=== PATIENT | female | born 1970 | race Caucasian/White ===

== ENCOUNTER 2020-09-22 05:35 | Outpatient (RCR) | payer BC ==
[~2020-09-22] VITALS: Ht 165 cm; Wt 111.3 kg
[~2020-09-22 05:35] MED LIST: ATOR40TA70 PO; CANA300T PO; CARV12.53 PO; CHOL-11 PO; CITA-105 PO; CITA40TA11 PO; CLON1TAB3 PO; CYAN10007 PO; GREE150C PO; INSU300I SQ; L.AC1CAP6 PO; LEVO175T5 PO; LEVO200T6 PO; LEVO500T69 PO; LISI-552 PO; LVT.15T PO; MNTL10T PO; MTF500T PO; MULT-1136 PO; PHEN37.555 PO; PRD20T PO; ZINC50TA51 PO; [UNRECOGNIZED DRUG - OTHER] PO
== END 2020-09-22 15:00 | disposition home or self-care (01) ==
LOC: PREOP 05:35
PROVIDERS: ATTEND Surgery
DX: Z01.818 Encounter for other preprocedural examination (principal); Z12.11 Encounter for screening for malignant neoplasm of colon

== ENCOUNTER 2020-11-17 05:34 | Outpatient (RCR) | payer BC ==
[~2020-11-17] VITALS: Ht 165.1 cm; Wt 110.5 kg
== END 2020-11-17 11:48 | disposition home or self-care (01) ==
LOC: PREOP 05:34
PROVIDERS: ATTEND Surgery
DX: Z01.812 Encounter for preprocedural laboratory examination (principal); Z12.11 Encounter for screening for malignant neoplasm of colon; Z20.828 Contact with and (suspected) exposure to other viral communicable diseases
CPT/HCPCS: 87635

== ENCOUNTER 2020-11-21 08:02 | Day surgery (SDC) | payer BC ==
[~2020-11-21] VITALS: Ht 165 cm; Wt 110.0 kg
[2020-11-21] VITALS (8 sets, daily range): BP systolic 118–141; BP diastolic 62–88
[2020-11-21] MEDS ORDERED: LACTATED RINGERS 1,000 ML IV ONE (08:18)
[2020-11-21] MEDS ORDERED: LACTATED RINGERS 1,000 ML IV PRN (08:30)
[2020-11-21] MEDS ORDERED: PROPOFOL INJECTION 0 ML IV ONE (08:58)
[2020-11-21] MEDS ORDERED: MIDAZOLAM 2 MG/2 ML (VERSED) VIAL ONE (08:59)
[2020-11-21] MEDS ORDERED: PROPOFOL INJECTION 50 ML IV ONE (09:23)
--- NOTE | 2020-11-21 09:34 | Progress Note-Post Operative ---
Post-Operative Progess Note Surgeon (s)/Roto Mixer Operator (s) Surgeon AMINA GOMEZ DO Roto Mixer Operator: na Pre-Operative Diagnosis screening colonoscopy Post-Operative Diagnosis normal colon Procedure & Operative Findings Date of Procedure 11/21/20 Procedure Performed/Findings colonoscopy Anesthesia Type per supervisor instrument repair Estimated Blood Loss Estimated blood loss (mL): none Specimens/Packing Specimens Removed na AMINA GOMEZ DO Nov 21, 2020 09:34
--- NOTE | 2020-11-21 09:35 | Discharge Inst-Simple/Standard ---
Discharge Inst-Standard Patient Instructions/Follow Up Plan of Care/Instructions/FU: Repeat colonoscopy in 10 years, if family history of colon cancer need it in 5 years. Any issues before that be seen at that time. Activity as Tolerated: Yes Discharge Diet: Regular Diet AMINA GOMEZ DO Nov 21, 2020 09:35
--- NOTE | 2020-11-21 12:33 | OPERATIVE REPORT ---
DATE OF SERVICE: 11/21/2020 PREOPERATIVE DIAGNOSIS: Screening colonoscopy. POSTOPERATIVE DIAGNOSIS: Normal colon. PROCEDURE: Colonoscopy. SURGEON: Amina Priest DO ANESTHESIA: Per PRODUCT ASSEMBLER. ESTIMATED BLOOD LOSS: None. COMPLICATIONS: None. INDICATIONS: The patient is a 50-year-old female with need for screening colonoscopy. She understands risks and benefits of procedure and wished to proceed with procedure. Consent was signed in the chart. DESCRIPTION OF PROCEDURE: The patient was taken to the endoscopy suite, placed in left lateral recumbent position. Timeout was performed. Digital rectal exam was performed. There were no palpable polyps, masses or ulcerations. Scope was inserted in the rectum and advanced all the way to cecum with minimal difficulty. Prep was adequate. Prep was adequate with irrigation and suction. Scope was then slowly retracted back. No polyps, masses or ulcerations within the cecum, ascending, transverse, descending and sigmoid colon. Once in the rectum, scope was retroflexed noting no other pathology. Scope was returned to its normal position, slowly withdrawn until completely removed. The patient tolerated procedure well without complications, taken to the recovery room in stable condition. RECOMMENDATIONS: The patient will need repeat colonoscopy in 10 years unless family history of colon cancer, which will then be 5 years. Any issues before that be seen at that time. Job ID: [id number] DocumentID: [id number] Dictated Date: 11/21/2020 09:32:40 Switch Box Installer Date: 11/21/2020 12:32:16 Dictated By: AMINA PRIEST DO
--- NOTE | 2020-11-21 13:35 | Anesthesia-General Post-Op ---
MAC Patient Condition Mental Status/LOC: Same as Preop Cardiovascular: Satisfactory Nausea/Vomiting: Absent Respiratory: Satisfactory Pain: Controlled Complications: Absent Post Op Complications Complications None Follow Up Care/Instructions Patient Instructions None needed. Anesthesiology Discharge Order Discharge Order Patient is doing well, no complaints, stable vital signs, no apparent adverse anesthesia problems. No complications reported per nursing. EISHA JUAREZ CRNA Nov 21, 2020 13:35
== END 2020-11-21 10:30 | disposition home or self-care (01) ==
LOC: ENDO 08:02
PROVIDERS: ATTEND Surgery
DX: Z12.11 Encounter for screening for malignant neoplasm of colon (principal); I10 Essential (primary) hypertension; E11.9 Type 2 diabetes mellitus without complications; Z79.84 Long term (current) use of oral hypoglycemic drugs; Z79.899 Other long term (current) drug therapy; Z88.5 Allergy status to narcotic agent; Z91.041 Radiographic dye allergy status; Z90.710 Acquired absence of both cervix and uterus
CPT/HCPCS: 82962

== ENCOUNTER 2021-07-27 11:36 | Outpatient (CLI) | payer BC ==
[~2021-07-27] VITALS: Ht 165.1 cm; Wt 106.6 kg
[2021-07-27 11:27] VITALS: BP 159/86
[~2021-07-27 11:36] MED LIST changes: -LISI-552 PO; +LISI20TA26 PO
[2021-07-27] MEDS ORDERED: ONDANSETRON 4 MG/2 ML (SDV) Z0FRAN IV PRN (11:45)
[2021-07-27] MEDS ORDERED: EPINEPHrine INJECTION 1 MG/ML AMP IM PRN (11:45)
[2021-07-27] MEDS ORDERED: ACETAMINOPHEN 500 MG TAB (TYLENOL) PO PRN (11:45)
[2021-07-27] MEDS ORDERED: diphenhydrAMINE 50 MG/ML INJ (BENADRYL) IV PRN (11:45)
[2021-07-27] MEDS ORDERED: CASIRIVIMAB/IMDEVIMAB 1,200 MG in NS (IVPB) 250 ML IV ONE (11:45)
[2021-07-27 12:40] VITALS: BP 142/94
== END 2021-07-27 13:20 | disposition home or self-care (01) ==
LOC: INFUSION 11:36
PROVIDERS: ATTEND Nurse Practitioner Family
DX: Z23 Encounter for immunization (principal); U07.1 COVID-19

== ENCOUNTER 2021-12-18 10:46 | Outpatient (CLI) | payer BC ==
[~2021-12-18] VITALS: Ht 165.1 cm; Wt 108.9 kg
[~2021-12-18 10:46] MED LIST changes: -CITA40TA11 PO; +CITA40TA13 PO
[2021-12-18 10:50] VITALS: BP 142/83
[2021-12-18] MEDS ORDERED: diphenhydrAMINE 50 MG/ML INJ (BENADRYL) IV PRN (11:00)
[2021-12-18] MEDS ORDERED: ONDANSETRON 4 MG/2 ML (SDV) Z0FRAN IV PRN (11:00)
[2021-12-18] MEDS ORDERED: ACETAMINOPHEN 500 MG TAB (TYLENOL) PO PRN (11:00)
[2021-12-18] MEDS ORDERED: SOTROVIMAB 500 MG/NS 50 ML IVPB IV ONE ×2 (11:00)
[2021-12-18] MEDS ORDERED: EPINEPHrine INJECTION 1 MG/ML AMP IM PRN (11:00)
[2021-12-18 11:58] VITALS: BP 145/85
== END 2021-12-18 12:10 ==
LOC: INFUSION 10:46
PROVIDERS: ATTEND Nurse Practitioner
DX: U07.1 COVID-19 (principal)

== ENCOUNTER 2023-02-08 16:04 | Emergency (ER) | payer BC ==
[2023-02-08 16:32] LABS: ALBUMIN 4.7 GM/DL (3.2-4.5); CHLORIDE 102 MMOL/L (98-107); POTASSIUM 3.8 MMOL/L (3.6-5.0); SODIUM 137 MMOL/L (135-145)
[2023-02-08 16:34] LABS: CALCIUM 10.2 MG/DL (8.5-10.1)
[2023-02-08 16:35] LABS: GLUCOSE 140 MG/DL (70-105); TOTAL PROTEIN 8.4 GM/DL (6.4-8.2)
[2023-02-08 16:36] LABS: CARBON DIOXIDE 23 MMOL/L (21-32)
[2023-02-08 16:37] LABS: BILIRUBIN,TOTAL 0.6 MG/DL (0.1-1.0)
[2023-02-08 16:38] LABS: ALKALINE PHOSPHATASE 78 U/L (40-136); CREATININE SERUM 0.74 MG/DL (0.60-1.30); GFR ESTIMATED 97
[2023-02-08 16:39] LABS: BUN/CREATININE RATIO 22
--- NOTE | 2023-02-08 16:40 | ED General ---
General Chief Complaint: Glucose Problems Stated Complaint: HYPOGLYCEMIA Source of Information: Patient Exam Limitations: No Limitations History of Present Illness Date Seen by Provider: Feb 08, 2023 Time Seen by Provider: 16:25 Initial Comments 52-year-old female presents to the ED via EMS for hypoglycemia. Patient went to the [facility] walk-in clinic today for evaluation for cold symptoms. She states she accidentally took 60 units of her Humalog around 2:15 this afternoon. Report from the provider at the clinic states that her blood sugar was in the 50s, and she was shaking. She took her glucagon and she ate some M&Ms and raisins. They gave her apple juice, and a shake. Her blood sugar is currently 155. She went to the clinic to be evaluated for her runny nose, headache, left ear popping, and cough for the last 3 days. Reports she is coughing up yellow-colored sputum. She reports she also had a sore throat at the beginning of the symptoms, but currently does not. States she has been using Flonase once a day for symptoms which has not helped. She also uses a Quyen pot daily. She denies fever, sore throat, chest pain, shortness of air, abdominal pain, nausea, vomiting. Allergies and Home Medications Allergies Coded Allergies: iodine (Verified Allergy, Mild, RASH, 12/18/21) morphine (Verified Adverse Reaction, Severe, SEVERE N/V, 12/18/21) Patient Home Medication List Home Medication List Reviewed: Yes Atorvastatin Calcium (Atorvastatin Calcium) 40 Mg Tablet, 40 MG PO DAILY, (Reported) Entered as Reported by: ANDRE SALES on 08/21/201542 Canagliflozin (Invokana) 300 Mg Tablet, 300 MG PO DAILY, (Reported) Entered as Reported by: ANDRE SALES on 08/21/201542 Carvedilol (Carvedilol) 12.5 Mg Tablet, 12.5 MG PO BID, (Reported) Entered as Reported by: ANDRE SALES on 08/21/201542 Cholecalciferol (Vitamin D3) (Vitamin D3) 250 Mcg Tablet, 250 MCG PO DAILY, (Reported) Entered as Reported by: ANDRE SALES on 08/21/201542 Citalopram Hydrobromide (Citalopram HBr) 40 Mg Tablet, 40 MG PO DAILY, (Reported) Entered as Reported by: ANDRE SALES on 08/21/201542 Cyanocobalamin (Vitamin B-12) (Vitamin B-12) 1,000 Mcg Tablet.er, 1,000 MCG PO DAILY, (Reported) Entered as Reported by: ANDRE SALES on 08/21/201542 Green Tea [place] Extract (Green Tea Extract) 150 Mg Capsule, 150 MG PO DAILY, (Reported) Entered as Reported by: ANDRE SALES on 08/21/201542 Insulin Glargine,Hum.rec.anlog (Toujeo Solostar) 300 Unit/1 Ml Insuln.pen, 60 UNIT SQ DAILY, (Reported) Entered as Reported by: ANDRE SALES on 08/21/201542 L.acidoph & Paracasei,B.lactis (Probiotic) 1 Each Capsule, 1 EACH PO DAILY, (Reported) Entered as Reported by: ANDRE SALES on 08/21/201542 Levothyroxine Sodium (Levothyroxine Sodium) 175 Mcg Tablet, 175 MCG PO DAILY, (Reported) Entered as Reported by: ANDRE SALES on 08/21/201542 Lisinopril (Lisinopril) 20 Mg Tablet, 20 MG PO DAILY, (Reported) Entered as Reported by: ANDRE SALES on 08/21/201542 Multivitamin (Multivitamin) 1 Each Tablet, 1 EACH PO DAILY, (Reported) Entered as Reported by: ANDRE SALES on 08/21/201542 Zinc Amino Acid Chelate (Zinc) 50 Mg Tablet, 50 MG PO DAILY, (Reported) Entered as Reported by: ANDRE SALES on 08/21/201542 [M-Acetyl L-Tyrosire] , 1 TAB PO DAILY, (Reported) Entered as Reported by: ANDRE SALES on 08/21/201542 Review of Systems Review of Systems Constitutional: see HPI Past Hifvhdj-Onlwkp-Pcimsp Hx Patient Social History Tobacco Use?: No Use of E-Cig and/or Vaping dev: No Substance use?: No Alcohol Use?: Yes Pt feels they are or have been: No Immunizations Up To Date Influenza Vaccine Up-to-Date: No; Not Current Seasonal Allergies Seasonal Allergies: Yes Past Medical History Surgery/Hospitalization HX: DM, HTN, HYPOTHYROID HYSTO, THYROID Surgeries: Yes (UMB HERNIA, RIGHT PLANTAR FASCITIS, KNEE SCOPE) Hysterectomy, Oophorectomy, Thyroidectomy Respiratory: Yes Sleep Apnea Currently Using CPAP: Yes Cardiac: Yes High Cholesterol, Hypertension Neurological: No Reproductive Disorders: No Sexually Transmitted Disease: No Genitourinary: No Gastrointestinal: No Colitis, Gastroesophageal Reflux Musculoskeletal: Yes (HANDS ) Arthritis Endocrine: Yes Diabetes, Insulin dep, Hypothyroidsim HEENT: No Loss of Vision: Denies Hearing Impairment: Denies Cancer: No Psychosocial: No Integumentary: No Blood Disorders: No Adverse Reaction/Blood Tranf: No (N/A) Physical Exam Vital Signs Vital Signs - First Documented 02/08/23 02/08/23 16:06 16:40 Temp 36.6 Pulse 97 Resp 18 B/P (MAP) 168/86 (113) O2 Delivery Room Air Capillary Refill : Height, Weight, BMI Height: 5'5.00" Weight: 260lbs. oz. 117.092027cm; 40.40 BMI Method:Stated General Appearance: No Apparent Distress, WD/WN HEENT: Pharyngeal Erythema (Mild), TM Abnormal (L) (Dull), TM Abnormal (R) (Dull); No Tonsillar Exudate; Tonsillar Enlargement, Other (Postnasal drainage, no sinus tenderness) Neck: Normal Inspection, Non Tender, Supple Respiratory: Lungs Clear, Normal Breath Sounds, No Accessory Muscle Use, No Respiratory Distress Cardiovascular: Regular Rate, Rhythm, No Edema, No Gallop, No JVD, No Murmur Extremity: Normal Inspection, Normal Range of Motion Neurologic/Psychiatric: Alert, Normal Mood/Affect Skin: Normal Color, Warm/Dry Progress/Results/Core Measures Suspected Sepsis SIRS Temperature: Pulse: Respiratory Rate: Laboratory Tests 02/08/23 16:08: White Blood Count 7.8 Blood Pressure / Mean: Laboratory Tests 02/08/23 16:08: Creatinine 0.74, Platelet Count 189, Total Bilirubin 0.6 Results/Orders Lab Results Laboratory Tests Test 02/08/23 16:08 02/08/23 16:11 02/08/23 16:25 02/08/23 18:08 Range/Units White Blood Count 7.8 4.3-11.0 10^3/uL Red Blood Count 4.87 3.80-5.11 10^6/uL Hemoglobin 15.0 11.5-16.0 g/dL Hematocrit 45 35-52 % Mean Corpuscular Volume 92 80-99 fL Mean Corpuscular Hemoglobin 31 25-34 pg Mean Corpuscular Hemoglobin Concent 33 32-36 g/dL Red Cell Distribution Width 12.3 10.0-14.5 % Platelet Count 189 130-400 10^3/uL Mean Platelet Volume 9.7 9.0-12.2 fL Immature Granulocyte % (Auto) 1 % Neutrophils (%) (Auto) 65 42-75 % Lymphocytes (%) (Auto) 25 12-44 % Monocytes (%) (Auto) 7 0-12 % Eosinophils (%) (Auto) 2 0-10 % Basophils (%) (Auto) 0 0-10 % Neutrophils # (Auto) 5.1 1.8-7.8 X 10^3 Lymphocytes # (Auto) 2.0 1.0-4.0 X 10^3 Monocytes # (Auto) 0.5 0.0-1.0 X 10^3 Eosinophils # (Auto) 0.2 0.0-0.3 10^3/uL Basophils # (Auto) 0.0 0.0-0.1 10^3/uL Immature Granulocyte # (Auto) 0.1 0.0-0.1 10^3/uL Sodium Level 137 135-145 MMOL/L Potassium Level 3.8 3.6-5.0 MMOL/L Chloride Level 102 98-107 MMOL/L Carbon Dioxide Level 23 21-32 MMOL/L Anion Gap 12 5-14 MMOL/L Blood Urea Nitrogen 16 7-18 MG/DL Creatinine 0.74 0.60-1.30 MG/DL Estimat Glomerular Filtration Rate 97 BUN/Creatinine Ratio 22 Glucose Level 140 H 70-105 MG/DL Calcium Level 10.2 H 8.5-10.1 MG/DL Corrected Calcium 8.5-10.1 MG/DL Total Bilirubin 0.6 0.1-1.0 MG/DL Aspartate Amino Transf (AST/SGOT) 34 5-34 U/L Alanine Aminotransferase (ALT/SGPT) 56 H 0-55 U/L Alkaline Phosphatase 78 40-136 U/L Total Protein 8.4 H 6.4-8.2 GM/DL Albumin 4.7 H 3.2-4.5 GM/DL Glucometer 155 H 132 H 70-110 MG/DL Influenza Type A (RT-PCR) Not Detected Not Detecte Influenza Type B (RT-PCR) Not Detected Not Detecte SARS-CoV-2 RNA (RT-PCR) Not Detected Not Detecte My Orders Orders - ADAM DE JESUS APRN Cbc With Automated Diff (02/08/23 16:21) Comprehensive Metabolic Panel (02/08/23 16:21) Covid 19 Inhouse Test (02/08/23 16:21) Influenza A And B By Pcr (02/08/23 16:21) Accucheck Stat ONCE (02/08/23 17:51) Vital Signs/I&O 02/08/23 02/08/23 02/08/23 16:06 16:40 18:37 Temp 36.6 36.6 Pulse 97 90 Resp 18 18 B/P (MAP) 168/86 (113) 147/78 O2 Delivery Room Air Room Air Capillary Refill : Point of Care Testing Finger Stick Blood Glucose: 155 Blood Glucose Action Taken: RN NOTIFIED Progress Note #1: Time: 16:41 Progress Note Patient seen and evaluated, resting comfortably in bed, no acute distress. Based on exam and symptoms, will test for COVID and flu. Will continue to monitor blood glucose while patient is here. Half-life of Humalog is 1 hour, patient took the Humalog about 2 hours prior to arrival. Patient's throat appears mildly erythemic, tonsils are enlarged. Patient does not want to be tested for strep throat, states she has no throat pain. Progress Note #2: Time: 17:08 Progress Note Labs reviewed. CBC grossly normal, WBC 7.8, hemoglobin 15.0. CMP shows glucose 140, slightly increased calcium of 10.2, elevated AST 56. COVID and flu neg ative. Results discussed with patient. Patient just ate half of her [employer] sandwich, blood sugar down to 93 now. She checked her blood sugar on her Dexcom. We will continue to monitor for at least another half hour to see if her blood sugar elevates after the sandwich. Patient agrees to stay for monitoring. Progress Note #3: Time: 17:22 Progress Note Patient's blood sugar dropped to 66 on her Dexcom. Patient given juice and soda. We will continue to monitor. Progress Note #4: Time: 18:31 Progress Note Patient's blood sugar has remained elevated. Last blood sugar on her monitor was 150. Patient would like to go home at this time. Discussed with patient th at is not appropriate to treat her with an antibiotic for her sinus infection at this time due to only having symptoms for 3 days. Patient verbalized understanding. Instructed to continue using her Quyen pot, Flonase, and to start an antihistamine, and use her humidifier. Discharge instructions and return precautions provided. Departure Impression Primary Impression: Hypoglycemia Additional Impression: Viral sinusitis Disposition: 01 HOME, SELF-CARE Condition: Stable Departure-Patient Inst. Decision time for Depature: 16:58 Referrals: NO,LOCAL PHYSICIAN (PCP/Family) Primary Care Physician Patient Instructions: Viral Upper Respiratory Infection, Adult (DC) Add. Discharge Instructions: Continue using Flonase. Start using an [id number]-[id number] antihistamine, like Zyrtec or Claritin. Use a humidifier at night with distilled water while you sleep. Continue using the Quyen pot rinses. Follow-up with your primary care provider. Return or see your primary care provider if your symptoms last more than 10 days because you may need an antibiotic. Also return for fever, or any other new, concerning, or worsening symptoms. All discharge instructions reviewed with patient and/or family. Voiced understanding. ADAM DE JESUS APRN Feb 08, 2023 16:40
[2023-02-08 16:41] LABS: ALANINE AMINOTRANSFERASE 56 U/L (0-55)
[2023-02-08 16:45] LABS: BASOPHILS % (AUTO) 0 % (0-10); EOSINOPHILS # (AUTO) 0.2 10^3/uL (0.0-0.3); EOSINOPHILS % (AUTO) 2 % (0-10); HEMATOCRIT 45 % (35-52); LYMPHOCYTES % (AUTO) 25 % (12-44); MEAN CORPUSCULAR HEMOGLOBIN 31 pg (25-34); MEAN CORPUSCULAR HGB CONC 33 g/dL (32-36); MEAN CORPUSCULAR VOLUME 92 fL (80-99); MEAN PLATELET VOLUME 9.7 fL (9.0-12.2); MONOCYTES # (AUTO) 0.5 X 10^3 (0.0-1.0); MONOCYTES % (AUTO) 7 % (0-12); NEUTROPHILS # (AUTO) 5.1 X 10^3 (1.8-7.8); NEUTROPHILS % (AUTO) 65 % (42-75); PLATELET COUNT 189 10^3/uL (130-400); WHITE BLOOD COUNT 7.8 10^3/uL (4.3-11.0)
[2023-02-08 18:37] VITALS: BP 147/78
== END 2023-02-08 18:41 | disposition home or self-care (01) ==
LOC: EDUNIT# 16:04 → ER 16:07
DX: E11.649 Type 2 diabetes mellitus with hypoglycemia without coma (principal); J32.9 Chronic sinusitis, unspecified; B34.9 Viral infection, unspecified; E83.52 Hypercalcemia; J35.1 Hypertrophy of tonsils; R74.01 Elevation of levels of liver transaminase levels; Z79.4 Long term (current) use of insulin; Z28.310 Unvaccinated for COVID-19; Z20.822 Contact with and (suspected) exposure to COVID-19
CPT/HCPCS: 36415; 80053; 82947; 85025; 87636

== ENCOUNTER → 2023-03-25 | Outpatient (CLI) | payer BC ==
[~2023-03-25] MED LIST changes: +RT-ALBUTEROL SULF 2.5 MG/3 ML PRE-MIX VIAL INH ONE
== END ==
LOC: RT 14:12
PROVIDERS: ATTEND Pediatrics
DX: R06.00 Dyspnea, unspecified (principal)
CPT/HCPCS: 94060; 94726; 94729